=== PATIENT | male | born 1975 | race Two or more races ===

== ENCOUNTER 2016-11-29 19:27 | Observation (INO) | payer SELFPAY ==
[2016-11-29] MEDS ORDERED: NO HOME MEDICATION XX (20:49)
[2016-11-29 21:27] LABS: BASO % 0.9 % (0-2); BASO ABSOLUTE COUNT 0.1 tho/cmm (0.0-0.2); EOS % 1.4 % (0-7); EOSINOPHIL ABSOLUTE COUNT 0.1 tho/cmm (0.0-0.7); HGB-HEMOGLOBIN 18.1 gm/dl (13.5-17.0); IMMATURE GRANULOCYTES ABSOLUTE 0.01 tho/cmm (0-0.03); IMMATURE GRANULOCYTES PERCENT 0.1 % (0-0.3); LYMPH ABSOLUTE COUNT 2.6 tho/cmm (0.8-4.5); MCH (MEAN CORPUSCULAR HGB) 28.9 pg (28.0-32.0); MCHC MEAN CORPUSCULAR HGB CONC 34.8 % (32.0-36.0); MCV (MEAN CELL VOLUME) 82.9 fl (82.0-96.0); MONO % 5.4 % (0-12); MONOCYTE ABSOLUTE COUNT 0.4 tho/cmm (0.0-1.2); NEUTROPHIL ABSOLUTE COUNT 4.8 tho/cmm (1.6-8.0); NEUTROPHIL-AUTOMATED 4.8 tho/cmm (1.6-8.0); NEUTROPHILS % 60.2 % (40-80); PLATELET COUNT 237 tho/cmm (150-450); RED BLOOD COUNT 6.27 mil/cmm (4.40-5.70); RED CELL DISTRIBUTION WIDTH 13.1 % (12.4-16.4)
[2016-11-29 21:33] LABS: INR 0.9 INR (0.9-1.1)
[2016-11-29 21:52] LABS: ALB/GLOB RATIO 0.9 (0.8-2.0); ALBUMIN 4.2 g/dl (3.5-5.0); ALKALINE PHOSPHATASE 83 U/L (33-138); ALT/SGPT 40 U/L (12-78); BILIRUBIN,TOTAL 0.6 mg/dl (0.0-1.5); BLOOD UREA NITROGEN 17 mg/dl (6-24); CALCIUM 8.4 mg/dl (8.5-10.5); CARBON DIOXIDE-VENOUS 24 mmol/L (22-32); CHLORIDE 105 mmol/l (96-110); CREATININE 0.85 mg/dl (0.60-1.30); GLUCOSE 133 mg/dL (70-110); LIPASE 142 U/L (73-393); SODIUM 141 mmol/L (135-145); eGFR VALUE FOR BLACK >90 mL/Min
[2016-11-29 21:55] LABS: ANION GAP 16 mmol/L (0-20)
[2016-11-29 21:56] LABS: ALCOHOL (ETOH) 310 mg/dl (<10); AST/SGOT 37 U/L (10-40); POTASSIUM 4.3 mmol/L (3.7-5.1)
[2016-11-29 22:12] LABS: URINE BILIRUBIN NEGATIVE (NEG); URINE BLOOD SMALL (NEG); URINE GLUCOSE (UA) NEGATIVE (NEG); URINE KETONE NEGATIVE (NEG); URINE LEUKOCYTE ESTERASE NEGATIVE (NEG); URINE NITRITE NEGATIVE (NEG); URINE PROTEIN MODERATE (NEG); URINE SPECIFIC GRAVITY 1.025 (1.003-1.030)
[2016-11-29 22:14] LABS: URINE APPEARANCE CLEAR; URINE COLOR YELLOW
[2016-11-29 22:21] LABS: URINE EPITHELIAL CELLS 0-5 /[HPF] (0-10); URINE RBC 0-1 /[HPF] (0-5); URINE WBC 0-3 /[HPF] (0-5)
[2016-11-30 04:13] LABS: BASO ABSOLUTE COUNT 0.1 tho/cmm (0.0-0.2); EOS % 0.5 % (0-7); HCT-HEMATOCRIT 47.1 % (36.0-53.5); IMMATURE GRANULOCYTES ABSOLUTE 0.01 tho/cmm (0-0.03); IMMATURE GRANULOCYTES PERCENT 0.2 % (0-0.3); LYMPH ABSOLUTE COUNT 1.3 tho/cmm (0.8-4.5); MCH (MEAN CORPUSCULAR HGB) 28.5 pg (28.0-32.0); MCV (MEAN CELL VOLUME) 83.8 fl (82.0-96.0); MEAN PLATELET VOLUME 11.2 cmc (9.4-12.4); MONO % 5.2 % (0-12); MONOCYTE ABSOLUTE COUNT 0.3 tho/cmm (0.0-1.2); NEUTROPHILS % 70.1 % (40-80); PLATELET COUNT 196 tho/cmm (150-450); RED BLOOD COUNT 5.62 mil/cmm (4.40-5.70); RED CELL DISTRIBUTION WIDTH 13.1 % (12.4-16.4); WHITE BLOOD COUNT 5.7 tho/cmm (4.0-10.0)
[2016-11-30 04:25] LABS: ANION GAP 14 mmol/L (0-20); BLOOD UREA NITROGEN 15 mg/dl (6-24); CALCIUM 7.7 mg/dl (8.5-10.5); CARBON DIOXIDE-VENOUS 25 mmol/L (22-32); CHLORIDE 106 mmol/l (96-110); GLUCOSE 137 mg/dL (70-110); SODIUM 141 mmol/L (135-145); eGFR VALUE FOR BLACK >90 mL/Min
[2016-11-30 04:54] LABS: POTASSIUM 4.2 mmol/L (3.7-5.1)
[2016-11-30] MEDS ORDERED: PROTONIX40 M2 PO (12:46)
== END 2016-11-30 14:05 ==
LOC: EDMED 19:27 → EMR2 23:57 → CAR1 11-30 00:42
PROVIDERS: Emergency Medicine; ADMIT Family Medicine
PROC: 0DB68ZX Excision of Stomach, Via Natural or Artificial Opening Endoscopic, Diagnostic (ICD-10-PCS; principal; 2016-11-30)
DX: K29.50 Unspecified chronic gastritis without bleeding (principal); K21.9 Gastro-esophageal reflux disease without esophagitis; K22.10 Ulcer of esophagus without bleeding; F17.210 Nicotine dependence, cigarettes, uncomplicated; F10.10 Alcohol abuse, uncomplicated
CPT/HCPCS: C9113; G0378; G0480; J2270; J2405; J7030; Q9967